=== PATIENT | male | born 1990 | race Hispanic/Latino ===

== ENCOUNTER 2020-03-18 17:17 | Emergency (ER) | payer BC ==
[~2020-03-18] VITALS: Ht 177.8 cm; Wt 70.0 kg
[~2020-03-18 17:17] MED LIST: NO HOME MEDS; PREVACID30 M2 PO; ULTRAM50 M1 PO; ZOFRAN ODT8 MG PO
[2020-03-18 19:02] LABS: HEMATOCRIT 43.7 % (39.0-50.0); HEMOGLOBIN 14.9 g/dl (14.0-18.0); IMMATURE GRANULOCYTES 0.3 % (0.0-5.0); MEAN CORPUSCULAR HGB 31.7 pG CALC (26.0-32.0); MEAN CORPUSCULAR HGB CONC 34.1 g/dL CAL (32.0-36.0); NEUT# 7.18 thou/uL (1.82-7.42); RED BLOOD COUNT 4.7 mill/uL (4.70-6.10); RED CELL DISTRI WIDTH 11.8 % (11.5-15.5)
[2020-03-18 19:19] LABS: ALBUMIN 4.9 g/dL (3.2-5.0); ALKALINE PHOSPHATASE 66 u/l (38-126); AMYLASE 55 u/l (30-110); ANION GAP 11 (6-22 (CALC)); BILIRUBIN, TOTAL 0.6 mg/dL (0.0-1.4); BUN 11 mg/dL (9-20); BUN/CREATININE RATIO 13 (12-20 (CALC)); CARBON DIOXIDE 29 mmol/l (22-30); CHLORIDE 101 mmol/l (95-108); CREATININE 0.8 mg/dL (0.7-1.3); GFR > 60 ML/MIN (>=60 (CALC)); GFR FOR AFR.AMER. > 60 ML/MIN (>=60 (CALC)); LIPASE 44 u/l (23-300); POTASSIUM 3.8 mmol/l (3.5-5.1); SGOT/AST 21 u/l (17-59); SODIUM 137 mmol/l (137-146); TOTAL PROTEIN 7.6 g/dL (6.3-8.2)
[2020-03-18 19:35] LABS: URINE BILIRUBIN - DIPSTICK NEGATIVE (NEGATIVE); URINE BLOOD DIPSTICK SMALL (NEGATIVE); URINE COLOR YELLOW; URINE GLUCOSE - DIPSTICK NEGATIVE (NEGATIVE); URINE KETONE 15 mg/dL (NEGATIVE); URINE LEUK ESTERASE NEGATIVE (NEGATIVE); URINE NITRITE - DIPSTICK NEGATIVE (Negative); URINE PH 6.5 (4.5-8.0); URINE PROTEIN - DIPSTICK NEGATIVE (NEG-TRACE); URINE SPECIFIC GRAVITY 1.025; URINE UROBILINOGEN - DIPSTICK 0.2 E.U./dL (0.2)
[2020-03-18 19:43] LABS: URINE AMORPH SEDIMENT FEW hpf (NONE-FER); URINE WBC 0-2 WBC/hpf (0-5)
[2020-03-18] MEDS ORDERED: PROTONIX40 M2 PO (20:57)
[2020-03-18] MEDS ORDERED: TYLENOL # 31 TAB PO (20:57)
[2020-03-18 21:05] VITALS: BP 118/68
== END 2020-03-18 21:05 | disposition home or self-care (01) | DRG 392 ==
LOC: ED 17:17
PROVIDERS: Emergency Medicine
DX: K29.70 Gastritis, unspecified, without bleeding (principal)
CPT/HCPCS: Q9967; S0164

== ENCOUNTER 2021-09-27 23:17 | Emergency (ER) | payer BC ==
[~2021-09-27] VITALS: Ht 177.8 cm; Wt 70.0 kg
[~2021-09-27 23:17] MED LIST changes: +PROTONIX40 M2 PO; +TYLENOL # 31 TAB PO
[2021-09-28] MEDS ORDERED: VOLTAREN75 MG PO (00:11)
[2021-09-28 00:31] VITALS: BP 137/91
== END 2021-09-28 00:31 | disposition home or self-care (01) | DRG 563 ==
LOC: ED 23:17
DX: S46.912A Strain of unspecified muscle, fascia and tendon at shoulder and upper arm level, left arm, initial encounter (principal); X58.XXXA Exposure to other specified factors, initial encounter